=== PATIENT | female | born 1960 | race African-American/Black ===

== ENCOUNTER 2019-09-18 08:00 | Outpatient (CLI) | payer OTHER, SELFPAY | END 2019-09-18 08:01 | disposition home or self-care (01) | LOC: CHSCARD 08:02 | PROVIDERS: PCP Family Medicine; Visit Provider Family Medicine | DX: R06.00 Dyspnea, unspecified (principal) | CPT/HCPCS: 94060; 94726; 94729 ==

== ENCOUNTER 2019-11-25 09:37 | Outpatient (CLI) | payer OTHER, SELFPAY ==
--- NOTE | 2019-11-25 11:00 | NEURO_ITS ---
Patient Number: [id number] Impression: # Complains of numbness of hands. # Bilateral Carpal Tunnel Syndrome. # Left ulnar neuropathy across the elbow. # Needle/EMG exam not requested. Nerve Conduction Studies Anti Sensory Summary Table Stim Site NR Peak (ms) P-T Amp (?V) Site1 Site2 Delta-P (ms) Dist (cm) Ted (m/s) Left Median Anti Sensory (2-3nd Digit) Wrist 3.5 43.6 Wrist 2-3nd Digit 3.5 14.0 40 Wrist 3.5 8.2 Wrist 2-3nd Digit 3.5 14.0 40 Right Median Anti Sensory (2-3nd Digit) Wrist 3.3 128.1 Wrist 2-3nd Digit 3.3 14.0 42 Wrist 3.5 26.8 Wrist 2-3nd Digit 3.3 14.0 42 Left Radial Anti Sensory (Base 1st Digit) Wrist 2.4 35.0 Wrist Base 1st Digit 2.4 0.0 Right Radial Anti Sensory (Base 1st Digit) Wrist 2.8 21.0 Wrist Base 1st Digit 2.8 0.0 Left Ulnar Anti Sensory (5th Digit) Wrist 3.1 57.8 Wrist 5th Digit 3.1 14.0 45 Right Ulnar Anti Sensory (5th Digit) Wrist 3.0 49.0 Wrist 5th Digit 3.0 14.0 47 Motor Summary Table Stim Site NR Onset (ms) O-P Amp (mV) Site1 Site2 Delta-0 (ms) Dist (cm) Ted (m/s) Left Median Motor (Abd Poll Brev) Wrist 4.6 2.4 Elbow Wrist 7.1 30.0 42 Elbow 11.7 1.7 Right Median Motor (Abd Poll Brev) Wrist 4.6 2.7 Elbow Wrist 6.4 31.0 48 Elbow 11.0 1.2 Left Ulnar Motor (Abd Dig Minimi) Wrist 2.9 6.8 A Elbow Wrist 7.0 33.0 47 A Elbow 9.9 5.0 B Elbow Wrist 4.7 26.0 55 B Elbow 7.6 3.7 Right Ulnar Motor (Abd Dig Minimi) Wrist 3.1 2.2 A Elbow Wrist 6.0 31.0 52 A Elbow 9.1 1.7 F Wave Studies NR F-Lat (ms) L-R F-Lat (ms) Left Median (Mrkrs) (Abd Poll Brev) 32.50 2.07 Right Median (Mrkrs) (Abd Poll Brev) 30.43 2.07 Left Ulnar (Mrkrs) (Abd Dig Min) 33.09 4.89 Right Ulnar (Mrkrs) (Abd Dig Min) 28.20 4.89 MTDD
== END 2019-11-25 09:38 | disposition home or self-care (01) ==
PROVIDERS: PCP Family Medicine; Visit Provider Family Medicine
DX: G56.03 Carpal tunnel syndrome, bilateral upper limbs (principal); G56.22 Lesion of ulnar nerve, left upper limb
CPT/HCPCS: 95911

== ENCOUNTER 2020-11-22 08:33 | Outpatient (CLI) | payer OTHER, SELFPAY ==
--- NOTE | 2020-12-18 18:38 | WPDHOMESLEEP ---
Sleep Study - Home Unattended Date of Study: 11/22/20 Ordering Provider: Ralph Sawyer MD Interpreting Provider: Leatha Mcintyre MD Home Sleep Study Type: Apnea Link Air Height: 1.7 m Weight: 113.398 kg Body Mass Index: 39.1 Neck Circumference (inches): 18 [place]: 17 Reason for Sleep Study history of obstructive sleep apnea, hypersomnia Sleep History Susy Boyce is a 60 year old female with Poor sleep which she says started around the age of 6 or 7. She had a sleep study at a hospital and was placed on CPAP for sleep apnea. She feels sleep deprived with difficulty concentrating and forgetfulness. She has difficulty falling asleep and staying asleep. She frequently sleepy in the daytime. She frequently has trouble sleeping with a cold, rarely wakes up gasping for breath at night. She occasionally has breathing problems at night observed by others. She occasionally sweats excessively at night. She occasionally notices her heart pounding or beating irregularly at night. She occasionally falls asleep during the day, occasionally involuntarily, rarely while driving. She does not have loss of muscle tone with strong emotion. She occasionally has daytime difficulties at work due to excessive sleepiness. She has not had an episode of feeling paralyzed on waking or falling asleep for the last 10 years. She rarely has vivid dreamlike scenes upon awakening or falling asleep. She is not afraid to go to sleep. She rarely has nightmares. She frequently remembers her dreams. She rarely has racing thoughts, feelings of sadness depression or anxiety. She frequently has muscular tension. She does not notice parts of her body jerking. She rarely kicks at night and really has crawling and aching feelings in her legs. She occasionally has leg pain during the night. She does not have morning jaw pain. She denies grinding her teeth at night. She frequently is bothered by pain during the day, frequently awakened by pain at night, frequently wakes up feeling stiff in the morning with sore achy muscles and pain in the neck and spine. She has bowel disturbances and chronic insomnia. She is disabled. She was recently hospitalized with cardiac problems. She has joint problems, eye disease and hearing problems. She has gained weight in the last year. She thinks she has seasonal allergies. There is a history of kidney dysfunction. Normal bedtime between 10:00 p.m. and 11:00 p.m. falling asleep within 2 hours, typically waking more than 5 times during the night. While awake she will frequently go to the bathroom, drink water, reposition and watch television. She awakens in the morning at 6:00 a.m.. Her weekend schedule varies more. She wakes up at 6:00 a.m. on Saturday and 9:00 a.m. on Saturday. She takes naps in the afternoon. Sometimes a short nap is refreshing. She is usually drowsy in the morning for 2 hours or longer. She feels better in the afternoon compared other times of day. Habits: Never smoked tobacco. Avoid caffeine. No alcohol. No recreational drugs. FORMERLY [facility], [facility] Past Medical History Medical History (Updated 12/19/20 @ 00:01 by Leatha Mcintyre MD) History of rheumatic fever Hypertension halfway (current) use of insulin Mixed hyperlipidemia Obstructive sleep apnea Type 2 diabetes mellitus without complication Surgical History Surgical History (Updated 12/19/20 @ 00:01 by Leatha Mcintyre MD) History of parathyroidectomy Family History Family History (System 05/25/19 @ 08:32 by Gabriela Toscano) Father Family history of cardiovascular disease Cerebrovascular accident Diabetes mellitus Hypertension Family history of arthritis Mother Acute myocardial infarction Cerebrovascular accident Social History Social History (System 05/25/19 @ 08:32 by Gabriela Toscano) Smoking status: Never smoker Alcohol intake: current Medications Medications: Vitamin D3 a 1000 units 2
[2020-12-18 23:30] VITALS: BMI 39.1
== END 2020-11-23 12:20 | disposition home or self-care (01) ==
LOC: ANHCSM 08:33
PROVIDERS: PCP Family Medicine
DX: G47.33 Obstructive sleep apnea (adult) (pediatric) (principal)
CPT/HCPCS: 95806

== ENCOUNTER 2021-03-02 08:22 | Outpatient (CLI) | payer OTHER, SELFPAY ==
--- NOTE | 2021-03-21 17:16 | WPDSLEEPSTUD ---
Sleep Study Date of Study: 03/02/21 <Connie Lim, DO - Last Filed: 03/21/21 17:42> Ordering Provider: UNKNOWN,DOCTOR <Connie Lim, DO - Last Filed: 03/21/21 17:42> Interpreting Physician: Connie Lim DO <Connie Lim, DO - Last Filed: 03/21/21 17:42> Sleep Study Type: Polysomnogram <Connie Lim DO - Last Filed: 03/21/21 17:42> Height: 1.7 m <Connie Lim DO - Last Filed: 03/21/21 17:42> Weight: 111.584 kg <Connie Lim DO - Last Filed: 03/21/21 17:42> Body Mass Index: 38.5 <Connie Lim DO - Last Filed: 03/21/21 17:42> Neck Circumference (inches): 15 <Connie Lim DO - Last Filed: 03/21/21 17:42> [place]: 11 <Connie Lim DO - Last Filed: 03/21/21 17:42> Reason for Sleep Study The patient was diagnosed with LUX in the hospital and discharged with a CPAP. <Connie Lim DO - Last Filed: 03/21/21 17:42> Sleep History The patient is a 60-year-old female with hypertension, insulin-dependent diabetes, GERD, hyperlipidemia, and obstructive sleep apnea that had a split study ordered due to difficulties with CPAP. She states that she has had poor sleep which she says started around the age of 6 or 7. She had a sleep study at a hospital and was placed on CPAP for sleep apnea. She had an HSAT using [facility] on Nov 22, 2020 that showed an AHI of 4.4. She snores and desaturates to 85% with 2 minutes spent below 88%. It was recommended that she have a Split Study. She feels sleep deprived with difficulty concentrating and forgetfulness. She has difficulty falling asleep and staying asleep. She frequently sleepy in the daytime. She frequently has trouble sleeping with a cold, rarely wakes up gasping for breath at night. She occasionally has breathing problems at night observed by others. She occasionally sweats excessively at night. She occasionally notices her heart pounding or beating irregularly at night. She occasionally falls asleep during the day, occasionally involuntarily, rarely while driving. She does not have loss of muscle tone with strong emotion. She occasionally has daytime difficulties at work due to excessive sleepiness. She has not had an episode of feeling paralyzed on waking or falling asleep for the last 10 years. She rarely has vivid dreamlike scenes upon awakening or falling asleep. She is not afraid to go to sleep. She rarely has nightmares. She frequently remembers her dreams. She rarely has racing thoughts, feelings of sadness depression or anxiety. She frequently has muscular tension. She does not notice parts of her body jerking. She rarely kicks at night and really has crawling and aching feelings in her legs. She occasionally has leg pain during the night. She does not have morning jaw pain. She denies grinding her teeth at night. She frequently is bothered by pain during the day, frequently awakened by pain at night, frequently wakes up feeling stiff in the morning with sore achy muscles and pain in the neck and spine. She has bowel disturbances and chronic insomnia. She is disabled. She was recently hospitalized with cardiac problems. She has joint problems, eye disease and hearing problems. She has gained weight in the last year. She thinks she has seasonal allergies. There is a history of kidney dysfunction. Normal bedtime between 10:00 p.m. and 11:00 p.m. falling asleep within 2 hours, typically waking more than 5 times during the night. While awake she will frequently go to the bathroom, drink water, reposition and watch television. She awakens in the morning at 6:00 a.m.. Her weekend schedule varies more. She wakes up at 6:00 a.m. on Saturday and 9:00 a.m. on Saturday. She takes naps in the afternoon. Sometimes a short nap is refreshing. She is usually drowsy in the morning for 2 hours or longer. She feels better in the afternoon compared othe
[2021-03-21 17:22] VITALS: BMI 38.5
== END 2021-03-03 07:06 | disposition home or self-care (01) ==
LOC: ANHCSM 08:26
PROVIDERS: PCP Family Medicine
DX: G47.33 Obstructive sleep apnea (adult) (pediatric) (principal)
CPT/HCPCS: 95810

== ENCOUNTER 2021-07-21 07:21 | Outpatient (CLI) | payer OTHER, SELFPAY ==
--- NOTE | ~2021-07-21 | XR_ITS ---
EXAMINATION: XR foot RT min 3V DATE: 07/21/2021 07:45 INDICATION: Right foot pain. TECHNIQUE: 4 views of right foot were obtained. COMPARISON: None. FINDINGS: There is moderate hallux valgus. No fracture. There is mild osteoarthritis of first metatar sophalangeal joint and some of the midfoot joints. There is an enthesophyte at plantar aspect of calc aneal tuberosity. IMPRESSION: 1. Moderate hallux valgus. 2. Mild polyarticular osteoarthritis. Reviewed, dictated and finalized at location B.
--- NOTE | ~2021-07-21 | XR_ITS ---
EXAMINATION: XR foot LT min 3V DATE: 07/21/2021 07:46 INDICATION: Left foot pain. TECHNIQUE: 4 views of left foot were obtained. COMPARISON: None. FINDINGS: There is moderate hallux valgus. No fracture. There is mild osteoarthritis of first metatar sophalangeal joint, first interphalangeal joint, and some of the midfoot joints. There is an enthesop hyte at plantar aspect of calcaneal tuberosity. IMPRESSION: 1. Moderate hallux valgus. 2. Mild polyarticular osteoarthritis. Reviewed, dictated and finalized at location B.
== END 2021-07-21 07:22 | disposition home or self-care (01) ==
LOC: CHSIMG 07:23
PROVIDERS: PCP Family Medicine; Visit Provider Family Medicine
DX: M79.671 Pain in right foot (principal)
CPT/HCPCS: 73630

== ENCOUNTER 2022-07-06 08:46 | Outpatient (CLI) | payer MEDICARE, SELFPAY ==
--- NOTE | ~2022-07-06 | XR_ITS ---
EXAMINATION: XR foot LT min 3V DATE: 07/06/2022 09:32 INDICATION: Chronic left foot pain with hard lump at the great toe. TECHNIQUE: Dorsoplantar, two oblique and lateral views of the left foot were obtained. COMPARISON: 07/21/2021 FINDINGS: Unchanged 30 degrees hallux valgus. Bunion formation with cystic and mild hypertrophic change at the medial head of the first metatarsal. No fracture. Mild osteoarthritis at the first metatarsophalangea l and multiple tarsometatarsal and interphalangeal joints. Small plantar calcaneal spur. Soft tissues are unremarkable. IMPRESSION: 1. Moderate hallux valgus with bunion. 2. Mild polyarticular osteoarthritis in the left fore and midfoot. Reviewed, dictated and finalized at location A.
--- NOTE | ~2022-07-06 | XR_ITS ---
EXAMINATION: XR foot RT min 3V DATE: 07/06/2022 09:33 INDICATION: Chronic right foot pain. Hard lump at the great toe. TECHNIQUE: Dorsoplantar, two oblique and lateral views of the right foot were obtained. COMPARISON: 07/21/2021 FINDINGS: 30 degrees hallux valgus. No fracture. Bunion with mild hypertrophic change at the medial head of the first metatarsal. Mild osteoarthritis at the first metatarsophalangeal and a few tarsometatarsal and interphalangeal joints. Small plantar calcaneal spur. IMPRESSION: 1. Moderate hallux valgus with mild bunion. 2. Mild polyarticular osteoarthritis in the right mid and forefoot. Reviewed, dictated and finalized at location A.
[2022-07-06 09:04] LABS: Basophils Absolute Auto 0.02 K/mm3 (0.00-0.10); Basophils Percent Auto 0.4 % (0.0-1.0); Eosinophils Absolute Auto 0.15 K/mm3 (0.02-0.50); Eosinophils Percent Auto 3.2 % (1.0-6.0); Hematocrit 40.1 % (35.0-49.0); Immature Granulocyte Absolute 0.02 K/mm3 (0.00-0.00); Immature Granulocyte Percent A 0.4 % (0.0-0.0); Lymphocytes Absolute Auto 1.75 K/mm3 (1.10-4.50); Lymphocytes Percent Auto 37.6 % (18.0-42.0); Mean Corpuscular HGB Conc 32.4 g/dL (32.0-36.0); Mean Corpuscular Hemoglobin 27.5 pg (27.0-31.0); Mean Corpuscular Volume 84.8 fL (78.0-102.0); Mean Platelet Volume 9.6 fl (9.2-11.8); Monocytes Absolute Auto 0.36 K/mm3 (0.10-0.90); Monocytes Percent Auto 7.7 % (2.0-11.0); Neutrophils Absolute Auto 2.4 K/mm3 (1.7-7.2); Neutrophils Percent Auto 50.7 % (50.0-70.0); Platelet Count Result 269 K/mm3 (150-420); Red Blood Count 4.73 M/mm3 (4.20-5.40); Red Cell Distribution Width 13.4 % (11.6-14.4); White Blood Count 4.7 K/mm3 (4.8-10.8)
[2022-07-06 09:10] LABS: Appearance Urine Slightly Cloudy (Clear); Bilirubin Urine Negative (Negative); Blood Urine Negative (Negative); Color Urine Light Yellow (Yellow); Glucose Urine UA Trace (Negative); Ketones Urine Negative (Negative); Leukocyte Esterase Ur Trace (Negative); Nitrate Urine Negative (Negative); Protein Urine Negative (Negative); Urobilinogen Urine 0.2 mg/dL (0.2-1.0)
[2022-07-06 09:15] LABS: Hemoglobin A1C 9.6 % (<5.7)
[2022-07-06 09:18] LABS: Creatinine Urine 105.35 mg/dL (40-278); MALB Creatinine Ratio 12.3 mg/g (0-30); Microalbumin Urine Random < 13.0 mg/L
[2022-07-06 09:21] LABS: Anion Gap 8 mmol/L (8-16); Blood Urea Nitrogen 12 mg/dL (7-18); Carbon Dioxide 30 mmol/L (21-32); Chloride 103 mmol/L (98-108); Cholesterol 143 mg/dL (0-200); Estimated Glomerular Filt Rate > 60; Glucose 236 mg/dL (70-99); HDL Direct 63 mg/dL (40-60); LDL Cholesterol Calculated 67 mg/dL (<130); Osmolality Calculated 299 mOsm/kg (285-295); Potassium 4.3 mmol/L (3.5-5.1); Sodium 141 mmol/L (136-145); Triglycerides 66 mg/dL (0-150)
[2022-07-06 09:23] LABS: Add Urine Microscopic? YES; RBC Urine 0-2 /hpf (0-2); Squamous Epithelial Cell Urine Few /hpf (Few); Starch Ur Present /hpf; WBC Urine 0-3 /hpf (0-3)
[2022-07-06 09:24] LABS: Bacteria Urine Trace /hpf
[2022-07-06 10:31] LABS: Alanine Aminotransferase 27 U/L (14-59); Albumin Level 3.8 g/dL (3.4-5.0); Alkaline Phosphatase 189 U/L (46-116); Aspartate Amino Transferase 28 U/L (15-37); Bilirubin,Total 0.4 mg/dL (0.00-1.00); Thyroid Stimulating Hormone 2.38 uIU/mL (0.36-3.74); Total Protein 8.3 g/dL (6.4-8.2)
== END 2022-07-06 08:47 | disposition home or self-care (01) ==
LOC: CHSIMG 08:51
PROVIDERS: PCP Family Medicine; Visit Provider Family Medicine
DX: E11.9 Type 2 diabetes mellitus without complications (principal); I10 Essential (primary) hypertension; E78.2 Mixed hyperlipidemia; M79.672 Pain in left foot; M79.671 Pain in right foot; M20.12 Hallux valgus (acquired), left foot; M20.11 Hallux valgus (acquired), right foot; M21.612 Bunion of left foot; M21.611 Bunion of right foot; M19.072 Primary osteoarthritis, left ankle and foot; M19.071 Primary osteoarthritis, right ankle and foot
CPT/HCPCS: 36415; 73630; 80048; 80053; 80061; 81001; 82043; 83036; 84443; 85025

== ENCOUNTER 2023-02-15 14:53 | Outpatient (CLI) | payer MEDICARE, SELFPAY ==
[2023-02-15 15:14] LABS: Basophils Absolute Auto 0.04 K/mm3 (0.00-0.10); Basophils Percent Auto 0.8 % (0.0-1.0); Eosinophils Absolute Auto 0.13 K/mm3 (0.02-0.50); Eosinophils Percent Auto 2.6 % (1.0-6.0); Immature Granulocyte Absolute 0.01 K/mm3 (0.00-0.00); Immature Granulocyte Percent A 0.2 % (0.0-0.0); Lymphocytes Absolute Auto 2.23 K/mm3 (1.10-4.50); Lymphocytes Percent Auto 43.9 % (18.0-42.0); Mean Corpuscular HGB Conc 31.7 g/dL (32.0-36.0); Mean Corpuscular Hemoglobin 27.3 pg (27.0-31.0); Mean Platelet Volume 9.2 fl (9.2-11.8); Monocytes Absolute Auto 0.31 K/mm3 (0.10-0.90); Monocytes Percent Auto 6.1 % (2.0-11.0); Neutrophils Absolute Auto 2.4 K/mm3 (1.7-7.2); Neutrophils Percent Auto 46.4 % (50.0-70.0); Platelet Count Result 294 K/mm3 (150-420); Red Blood Count 4.77 M/mm3 (4.20-5.40); Red Cell Distribution Width 13.2 % (11.6-14.4); White Blood Count 5.1 K/mm3 (4.8-10.8)
[2023-02-15 15:19] LABS: Appearance Urine Clear (Clear); Bilirubin Urine 1+ (Negative); Blood Urine Negative (Negative); Color Urine Yellow (Yellow); Glucose Urine UA Negative (Negative); Ketones Urine Trace (Negative); Leukocyte Esterase Ur Trace (Negative); Nitrate Urine Negative (Negative); Protein Urine 1+ (Negative); Specific Grav Ur >= 1.030 (1.010-1.020); Urobilinogen Urine 0.2 mg/dL (0.2-1.0)
[2023-02-15 15:25] LABS: Add Urine Microscopic? YES; Bacteria Urine Trace /hpf; Squamous Epithelial Cell Urine Few /hpf (Few); WBC Urine 0-3 /hpf (0-3)
[2023-02-15 15:26] LABS: Hemoglobin A1C 7.9 % (<5.7)
[2023-02-15 15:27] LABS: MALB Creatinine Ratio 4.3 mg/g (0-30); Microalbumin Urine Random 23.4 mg/L
[2023-02-15 15:36] LABS: Alanine Aminotransferase 29 U/L (14-59); Albumin Level 3.8 g/dL (3.4-5.0); Alkaline Phosphatase 130 U/L (46-116); Anion Gap 6 mmol/L (8-16); Aspartate Amino Transferase 20 U/L (15-37); Bilirubin,Total 0.6 mg/dL (0.00-1.00); Blood Urea Nitrogen 15 mg/dL (7-18); Calcium 9.2 mg/dL (8.5-10.1); Carbon Dioxide 33 mmol/L (21-32); Chloride 103 mmol/L (98-108); Cholesterol 130 mg/dL (0-200); Estimated Glomerular Filt Rate 44; Glucose 100 mg/dL (70-99); HDL Direct 59 mg/dL (40-60); LDL Cholesterol Calculated 58 mg/dL (<130); Osmolality Calculated 294 mOsm/kg (285-295); Potassium 3.8 mmol/L (3.5-5.1); Sodium 142 mmol/L (136-145); Thyroid Stimulating Hormone 1.43 uIU/mL (0.36-3.74); Total Protein 8.2 g/dL (6.4-8.2); Triglycerides 67 mg/dL (0-150)
== END 2023-02-15 14:54 | disposition home or self-care (01) ==
LOC: CHSLAB 14:58
PROVIDERS: PCP Family Medicine; Visit Provider Family Medicine
DX: E11.9 Type 2 diabetes mellitus without complications (principal); I10 Essential (primary) hypertension; E78.5 Hyperlipidemia, unspecified
CPT/HCPCS: 36415; 80053; 80061; 81001; 82043; 83036; 84443; 85025